=== PATIENT | male | born 1960 | race Two or more races ===

== ENCOUNTER 2019-07-06 14:11 | Emergency (ER) | payer MEDICAID, OTHER ==
[~2019-07-06] VITALS: Ht 165.1 cm; Wt 78.0 kg
[2019-07-06] MEDS ORDERED: SODIUM CHLORIDE 0.9% 1,000 ML IVB ONE (15:43)
[2019-07-06] MEDS ORDERED: PANTOPRAZOLE 40 MG/10 ML VIAL INJ IV STA (15:43)
[2019-07-06] MEDS ORDERED: ONDANSETRON HCL 4 MG/2 ML VIAL IV ONE (15:45)
[2019-07-06 15:46] LABS: Basophils # (auto) 0 uL; Basophils % (auto) 0.4 % (0.0-2.0); Eosinophils # (auto) 0.4 uL; Eosinophils % (auto) 6.1 % (0.0-7.0); Hematocrit 47.2 % (41.0-53.0); Hemoglobin 16.1 g/dL (13.5-17.5); Lymphocytes # (auto) 2.2 uL; Lymphocytes % (auto) 31.6 % (10.0-50.0); Mean Corpuscular Hemoglobin 30.6 pg (28.0-32.0); Mean Corpuscular Hgb Conc. 34.1 g/dL (32.0-36.0); Mean Corpuscular Volume 89.7 fL (80.0-100.0); Monocytes # (auto) 0.4 uL; Monocytes % (auto) 6.1 % (0.0-12.0); Neutrophils # (auto) 3.9 uL; Neutrophils % (auto) 55.8 % (37.0-80.0); Nucleated Red Blood Cells % 0.1 %; Platelet Count (auto) 164 10^3/uL (140-450); Red Blood Cells 5.26 10^6/uL (4.5-5.90); Red Cell Distribution Width 13.1 % (11.8-14.3)
[2019-07-06 16:12] LABS: Albumin 3.9 g/dL (3.4-5.0); Calcium 9.2 mg/dL (8.5-10.1); Potassium 4.3 mmol/L (3.5-5.1)
[2019-07-06 16:14] LABS: BUN/Creatinine Ratio 12.6
[2019-07-06 16:17] LABS: Bilirubin, Total 0.2 mg/dL (0.2-1.0); Total Protein 8.2 g/dL (6.4-8.2)
[2019-07-06 18:51] LABS: Urine Bacteria NONE SEEN /hpf (None Seen); Urine Blood Negative /uL (Negative); Urine Mucus FEW (None Seen); Urine Specific Gravity 1.024 (1.001-1.035); Urine WBC <1 /hpf (0 - 3)
[2019-07-06 19:36] VITALS: BP 129/88
== END 2019-07-06 19:47 | disposition home or self-care (01) ==
LOC: ER 14:11
DX: R10.13 Epigastric pain (principal); R11.2 Nausea with vomiting, unspecified; J45.909 Unspecified asthma, uncomplicated; E11.9 Type 2 diabetes mellitus without complications; I10 Essential (primary) hypertension
CPT/HCPCS: 36415; 76705; 80053; 81001; 82962; 83690; 85025; 96361; 96374; 96375; 99284; C9113; J2405; J7030

== ENCOUNTER 2019-09-11 02:39 | Inpatient (IN) | payer SELFPAY ==
[~2019-09-11] VITALS: Ht 165.1 cm; Wt 76.7 kg
[2019-09-11 03:06] LABS: Basophils # (auto) 0 10 ^3/uL (0-0.2); Basophils % (auto) 0.5 % (0.0-2.0); Eosinophils # (auto) 0.3 10 ^3/uL (0-0.8); Eosinophils % (auto) 4.4 % (0.0-7.0); Hemoglobin 15.6 g/dL (13.5-17.5); Lymphocytes # (auto) 2.4 10 ^3/uL (0.4-5.4); Lymphocytes % (auto) 35.6 % (10.0-50.0); Mean Corpuscular Hgb Conc. 33.9 g/dL (32.0-36.0); Mean Corpuscular Volume 88.4 fL (80.0-100.0); Monocytes # (auto) 0.5 10 ^3/uL (0-1.3); Monocytes % (auto) 7.5 % (0.0-12.0); Neutrophils # (auto) 3.5 10 ^3/uL (1.6-8.6); Nucleated Red Blood Cells % 0.1 %; Platelet Count (auto) 171 10^3/uL (140-450); Red Cell Distribution Width 13.2 % (11.8-14.3); White Blood Cell 6.8 10^3/uL (4.4-10.8)
[2019-09-11 03:23] LABS: INR 1.04 (0.9-1.15); Partial Thromboplastin Time 28.5 sec (23.64-32.05)
[2019-09-11 03:24] LABS: Albumin 3.6 g/dL (3.4-5.0); BUN/Creatinine Ratio 15.6; Calcium 8.7 mg/dL (8.5-10.1); Potassium 3.8 mmol/L (3.5-5.1)
[2019-09-11 03:28] LABS: Bilirubin, Total 0.5 mg/dL (0.2-1.0); Total Protein 7.7 g/dL (6.4-8.2)
[2019-09-11] MEDS ORDERED: ENOXAPARIN SOD 80 MG/0.8ML SYRINGE SC ONE (04:00)
[2019-09-11 05:38] LABS: Urine Bacteria NONE SEEN /hpf (None Seen); Urine Blood Negative /uL (Negative); Urine Specific Gravity 1.006 (1.001-1.035); Urine WBC <1 /hpf (0 - 3)
[2019-09-11] MEDS ORDERED: SODIUM CHLORIDE 0.9% 1,000 ML IV SCH (06:54)
[2019-09-11] MEDS ORDERED: MORPHINE SULF INJ 2 MG/ML SYRINGE 1ML IV PRN (07:00)
[2019-09-11] MEDS ORDERED: ONDANSETRON HCL 4 MG/2 ML VIAL IV PRN (07:00)
[2019-09-11] MEDS ORDERED: NITROGLYCERIN 0.4 MG SL TAB SL PRN (07:00)
[2019-09-11] MEDS ORDERED: TEMAZEPAM 15 MG CAP PO PRN (07:00)
[2019-09-11] MEDS ORDERED: DEXTROSE (50%) 50ML SYRG IV PRN (07:00)
[2019-09-11] MEDS ORDERED: ATORVASTATIN 20 MG TAB PO ONE (07:00)
[2019-09-11 07:59] LABS: Cholesterol 245 mg/dL (< 200); HDL Cholesterol 47 mg/dL (40-59); LDL Cholesterol 152 mg/dL (< 100); Triglycerides 279 mg/dL (< 150)
[2019-09-11 09:30] VITALS: BP 135/89
[2019-09-11] MEDS ORDERED: LISINOPRIL 5 MG TAB PO SCH (10:00)
[2019-09-11 10:03] VITALS: BP 135/89
[2019-09-11] MEDS: ASPirin 81 mg TAB PO SCH (10:05)
[2019-09-11] MEDS: METOPROLOL TARTRATE 25 MG TAB PO SCH ×2 (10:06→22:09)
[2019-09-11] MEDS: FAMOTIDINE 20 MG TAB PO SCH ×2 (10:06→22:10)
[2019-09-11] MEDS ORDERED: ADENOSINE 65 MG in GIVE UN-DILUTED 0 ML IV STA (10:11)
[2019-09-11] MEDS ORDERED: GLIP5TAB12 PO (10:27)
[2019-09-11] MEDS ORDERED: LISI-646 PO (10:27)
[2019-09-11] MEDS ORDERED: METF-371 PO (10:27)
[2019-09-11] MEDS: InsuLIN REG 1unit/0.01ml Soln (100units/ml) SC SCH ×3 (11:39→23:50)
[2019-09-11] MEDS: ACCU-CHEK COMFORT CURVE STRIP VI SCH ×3 (11:39→23:46)
[2019-09-11 12:58] VITALS: BP 142/92
[2019-09-11 14:22] VITALS: BP 142/99
[2019-09-11] MEDS ORDERED: CLOPIDOGREL 300 MG TAB PO ONE (16:00)
[2019-09-11] MEDS ORDERED: ASPirin 81 mg TAB PO ONE (16:00)
[2019-09-11] MEDS ORDERED: ALBUAER3 IN (16:14)
[2019-09-11] MEDS ORDERED: HEPARIN SODIUM (PORCINE) 5000 UNITS/ML 1ML VIAL IV ONE (16:30)
[2019-09-11 16:34] VITALS: BP 152/92
[2019-09-11] MEDS ORDERED: HEPARIN DRIP/D5W 100UNITS/ML 250 ML IV SCH (16:45)
[2019-09-11 17:36] LABS: INR 1.08 (0.9-1.15); Partial Thromboplastin Time 30.4 sec (23.64-32.05)
[2019-09-11 22:00] VITALS: BP 140/77
[2019-09-11] MEDS ORDERED: ATORVASTATIN 20 MG TAB PO SCH (22:00)
[2019-09-11 22:09] LABS: INR 1.12 (0.9-1.15); Partial Thromboplastin Time 52.7 sec (23.64-32.05)
[2019-09-11] MEDS: ATORVASTATIN 20 MG TAB PO SCH (22:09)
[2019-09-12 00:01] LABS: INR 1.09 (0.9-1.15); Partial Thromboplastin Time 47.5 sec (23.64-32.05)
[2019-09-12] MEDS: SODIUM CHLORIDE 0.9% 1,000 ML IV SCH ×2 (00:07→13:21)
[2019-09-12 05:00] VITALS: BP_SYST 105; BP_SYST 127; BP_DIAS 67; BP_DIAS 86
[2019-09-12] MEDS: ACCU-CHEK COMFORT CURVE STRIP VI SCH ×4 (05:49→23:58)
[2019-09-12] MEDS: InsuLIN REG 1unit/0.01ml Soln (100units/ml) SC SCH ×3 (05:50→18:01)
[2019-09-12 06:57] LABS: Basophils # (auto) 0 10 ^3/uL (0-0.2); Basophils % (auto) 0.4 % (0.0-2.0); Eosinophils # (auto) 0.3 10 ^3/uL (0-0.8); Eosinophils % (auto) 4.8 % (0.0-7.0); Hematocrit 42.1 % (41.0-53.0); Hemoglobin 14.4 g/dL (13.5-17.5); Lymphocytes # (auto) 2.3 10 ^3/uL (0.4-5.4); Lymphocytes % (auto) 42.6 % (10.0-50.0); Mean Corpuscular Hemoglobin 30.2 pg (28.0-32.0); Mean Corpuscular Hgb Conc. 34.3 g/dL (32.0-36.0); Mean Corpuscular Volume 88.1 fL (80.0-100.0); Monocytes # (auto) 0.4 10 ^3/uL (0-1.3); Monocytes % (auto) 7.5 % (0.0-12.0); Neutrophils # (auto) 2.4 10 ^3/uL (1.6-8.6); Neutrophils % (auto) 44.7 % (37.0-80.0); Nucleated Red Blood Cells % 0.1 %; Platelet Count (auto) 153 10^3/uL (140-450); Red Blood Cells 4.78 10^6/uL (4.5-5.90); Red Cell Distribution Width 13.3 % (11.8-14.3); White Blood Cell 5.4 10^3/uL (4.4-10.8)
[2019-09-12 07:11] LABS: INR 1.11 (0.9-1.15); Partial Thromboplastin Time 59.1 sec (23.64-32.05)
[2019-09-12 07:13] LABS: Calcium 8.4 mg/dL (8.5-10.1); Potassium 3.7 mmol/L (3.5-5.1)
[2019-09-12 07:18] LABS: BUN/Creatinine Ratio 12.8
[2019-09-12 08:00] VITALS: BP 129/78
[2019-09-12 08:56] VITALS: BP 129/78
[2019-09-12] MEDS: ASPirin 81 mg TAB PO SCH (09:56)
[2019-09-12] MEDS: FAMOTIDINE 20 MG TAB PO SCH ×2 (09:56→21:57)
[2019-09-12] MEDS: LISINOPRIL 20 MG TAB PO SCH (09:57)
[2019-09-12] MEDS: METOPROLOL TARTRATE 25 MG TAB PO SCH ×2 (09:57→21:58)
[2019-09-12] MEDS ORDERED: fentaNYL CITRATE 100 MCG/2 ML VL ONE (12:01)
[2019-09-12] MEDS ORDERED: LIDOCAINE 2%HCL (LOCAL ANESTH.) INJ 20ML MDV ONE (12:01)
[2019-09-12] MEDS ORDERED: IOHEXOL 350 MG/ML 100ML IJ ONE ×3 (12:01→13:02)
[2019-09-12] MEDS ORDERED: MIDAZOLAM HCL 1MG/1ML-2 ML VIAL ONE (12:01)
[2019-09-12] MEDS ORDERED: VERAPAMIL 2.5MG/ML INJ 2ML VIAL IV ONE (12:05)
[2019-09-12] MEDS ORDERED: ATROPINE SULF 1 MG/10ml SYR ONE (12:24)
[2019-09-12] MEDS ORDERED: HEPARIN SODIUM (PORCINE) 5000 UNITS/ML 1ML VIAL ONE (12:46)
[2019-09-12] MEDS ORDERED: diphenhdrAMINE HCL 50 MG/1 ML VL ONE (12:53)
[2019-09-12] MEDS ORDERED: CLOPIDOGREL 300 MG TAB ONE ×2 (13:23→13:26)
[2019-09-12 15:54] LABS: INR 1.07 (0.9-1.15); Partial Thromboplastin Time 36.3 sec (23.64-32.05)
[2019-09-12] MEDS ORDERED: amLODIPine BESYLATE 5 MG TAB PO ONE (16:00)
[2019-09-12 16:52] VITALS: BP 152/87
[2019-09-12] MEDS: ATORVASTATIN 20 MG TAB PO SCH (21:57)
[2019-09-12 22:00] VITALS: BP 143/79
[2019-09-13] MEDS: SODIUM CHLORIDE 0.9% 1,000 ML IV SCH ×2 (02:40→16:12)
[2019-09-13 05:00] VITALS: BP 105/71
[2019-09-13] MEDS: ACCU-CHEK COMFORT CURVE STRIP VI SCH ×3 (05:48→18:11)
[2019-09-13] MEDS: InsuLIN REG 1unit/0.01ml Soln (100units/ml) SC SCH ×4 (05:50→18:13)
[2019-09-13 08:55] VITALS: BP 117/65
[2019-09-13] MEDS: ASPirin 81 mg TAB PO SCH (11:42)
[2019-09-13] MEDS: METOPROLOL TARTRATE 25 MG TAB PO SCH ×2 (11:42→22:03)
[2019-09-13] MEDS: FAMOTIDINE 20 MG TAB PO SCH ×2 (11:42→22:01)
[2019-09-13] MEDS: CLOPIDOGREL BISULFATE 75 MG TAB PO SCH (11:43)
[2019-09-13] MEDS: LISINOPRIL 20 MG TAB PO SCH (11:43)
[2019-09-13] MEDS: amLODIPine BESYLATE 5 MG TAB PO SCH (11:44)
[2019-09-13 13:00] VITALS: BP 139/83
[2019-09-13 16:37] VITALS: BP 131/86
[2019-09-13 21:53] VITALS: BP 132/87
[2019-09-13] MEDS: ATORVASTATIN 20 MG TAB PO SCH (22:01)
[2019-09-14 05:00] VITALS: BP 132/83
[2019-09-14] MEDS: SODIUM CHLORIDE 0.9% 1,000 ML IV SCH ×2 (05:21→18:16)
[2019-09-14] MEDS: InsuLIN REG 1unit/0.01ml Soln (100units/ml) SC SCH ×4 (06:00→17:48)
[2019-09-14 06:34] LABS: Basophils # (auto) 0 10 ^3/uL (0-0.2); Basophils % (auto) 0.4 % (0.0-2.0); Eosinophils # (auto) 0.3 10 ^3/uL (0-0.8); Eosinophils % (auto) 3.6 % (0.0-7.0); Hematocrit 42.5 % (41.0-53.0); Hemoglobin 14.8 g/dL (13.5-17.5); Lymphocytes # (auto) 2.2 10 ^3/uL (0.4-5.4); Lymphocytes % (auto) 30.6 % (10.0-50.0); Mean Corpuscular Hemoglobin 30.6 pg (28.0-32.0); Mean Corpuscular Hgb Conc. 34.7 g/dL (32.0-36.0); Mean Corpuscular Volume 88.1 fL (80.0-100.0); Monocytes # (auto) 0.7 10 ^3/uL (0-1.3); Monocytes % (auto) 8.9 % (0.0-12.0); Neutrophils # (auto) 4.1 10 ^3/uL (1.6-8.6); Neutrophils % (auto) 56.5 % (37.0-80.0); Nucleated Red Blood Cells % 0.2 %; Platelet Count (auto) 149 10^3/uL (140-450); Red Blood Cells 4.82 10^6/uL (4.5-5.90); Red Cell Distribution Width 13.4 % (11.8-14.3); White Blood Cell 7.3 10^3/uL (4.4-10.8)
[2019-09-14] MEDS: ACCU-CHEK COMFORT CURVE STRIP VI SCH ×4 (06:48→17:44)
[2019-09-14 06:49] LABS: Calcium 8.4 mg/dL (8.5-10.1); INR 1.07 (0.9-1.15); Potassium 3.5 mmol/L (3.5-5.1)
[2019-09-14 07:30] VITALS: BP 145/81
[2019-09-14 09:00] VITALS: BP 132/77
[2019-09-14] MEDS ORDERED: IOHEXOL 350 MG/ML 100ML IJ ONE (09:12)
[2019-09-14] MEDS ORDERED: LIDOCAINE 2%HCL (LOCAL ANESTH.) INJ 20ML MDV ONE (09:12)
[2019-09-14] MEDS ORDERED: ANGIOMAX 250 MG VIAL IV ONE (10:06)
[2019-09-14] MEDS ORDERED: MIDAZOLAM HCL 1MG/1ML-2 ML VIAL ONE (10:06)
[2019-09-14] MEDS ORDERED: fentaNYL CITRATE 100 MCG/2 ML VL ONE (10:06)
[2019-09-14] MEDS ORDERED: VERAPAMIL 2.5MG/ML INJ 2ML VIAL IV ONE (10:06)
[2019-09-14] MEDS ORDERED: SODIUM CHL 0.9% 50 ML ONE (10:06)
[2019-09-14] MEDS ORDERED: HEPARIN SODIUM (PORCINE) 5000 UNITS/ML 1ML VIAL ONE (10:06)
[2019-09-14] MEDS: CLOPIDOGREL BISULFATE 75 MG TAB PO SCH (11:08)
[2019-09-14] MEDS: ASPirin 81 mg TAB PO SCH (11:08)
[2019-09-14] MEDS: amLODIPine BESYLATE 5 MG TAB PO SCH (12:59)
[2019-09-14] MEDS: FAMOTIDINE 20 MG TAB PO SCH ×2 (12:59→21:22)
[2019-09-14] MEDS: METOPROLOL TARTRATE 25 MG TAB PO SCH ×2 (12:59→21:21)
[2019-09-14] MEDS: LISINOPRIL 20 MG TAB PO SCH (13:00)
[2019-09-14 17:04] VITALS: BP 121/83
[2019-09-14 21:18] VITALS: BP 139/81
[2019-09-14] MEDS: ATORVASTATIN 20 MG TAB PO SCH (21:20)
[2019-09-15] MEDS: InsuLIN REG 1unit/0.01ml Soln (100units/ml) SC SCH ×3 (00:21→12:00)
[2019-09-15] MEDS: ACCU-CHEK COMFORT CURVE STRIP VI SCH ×3 (00:22→12:00)
[2019-09-15 05:01] VITALS: BP 121/75
[2019-09-15 07:30] VITALS: BP 145/81
[2019-09-15] MEDS: SODIUM CHLORIDE 0.9% 1,000 ML IV SCH (08:01)
[2019-09-15 09:00] VITALS: BP 116/81
[2019-09-15] MEDS ORDERED: LIDOCAINE 2% (LOCAL ANESTH.) PF 5ml SDV ONE ×2 (10:34→10:55)
[2019-09-15] MEDS ORDERED: PROPOFOL 10 MG/ML 20 ML IV ONE ×2 (10:34→10:56)
[2019-09-15] MEDS: ASPirin 81 mg TAB PO SCH (10:50)
[2019-09-15] MEDS: CLOPIDOGREL BISULFATE 75 MG TAB PO SCH (10:51)
[2019-09-15] MEDS: METOPROLOL TARTRATE 25 MG TAB PO SCH (10:51)
[2019-09-15] MEDS: FAMOTIDINE 20 MG TAB PO SCH (10:51)
[2019-09-15] MEDS: amLODIPine BESYLATE 5 MG TAB PO SCH (10:51)
[2019-09-15] MEDS: LISINOPRIL 20 MG TAB PO SCH (10:52)
[2019-09-15 13:00] VITALS: BP 121/90
[2019-09-15 13:14] VITALS: BP 121/93
== END 2019-09-15 16:05 | disposition home or self-care (01) | DRG 174 ==
LOC: ER 02:41 → TELE 02:42 → TELE-CENTR 09:15
PROVIDERS: ADMIT Nurse Practitioner; ATTEND Internal Medicine Nephrology
PROC: 4A023N7 Measurement of Cardiac Sampling and Pressure, Left Heart, Percutaneous Approach (ICD-10-PCS; principal; 2019-09-12)
PROC: 027034Z Dilation of Coronary Artery, One Artery with Drug-eluting Intraluminal Device, Percutaneous Approach (ICD-10-PCS; 2019-09-12)
PROC: B2111ZZ Fluoroscopy of Multiple Coronary Arteries using Low Osmolar Contrast (ICD-10-PCS; 2019-09-12)
PROC: B2151ZZ Fluoroscopy of Left Heart using Low Osmolar Contrast (ICD-10-PCS; 2019-09-12)
PROC: 02713ZZ Dilation of Coronary Artery, Two Arteries, Percutaneous Approach (ICD-10-PCS; 2019-09-14)
DX: I21.4 Non-ST elevation (NSTEMI) myocardial infarction (principal); E11.9 Type 2 diabetes mellitus without complications; E78.00 Pure hypercholesterolemia, unspecified; E78.5 Hyperlipidemia, unspecified; I10 Essential (primary) hypertension; I25.10 Atherosclerotic heart disease of native coronary artery without angina pectoris; J45.909 Unspecified asthma, uncomplicated; Z79.84 Long term (current) use of oral hypoglycemic drugs; Z83.3 Family history of diabetes mellitus; Z79.899 Other long term (current) drug therapy
CPT/HCPCS: 36415; 71046; 78452; 80048; 80053; 80061; 81001; 82565; 82962; 83036; 83735; 83880; 84443; 84484; 85025; 85379; 85610; 85730; 92920; 92928; 93005; 93017; 93306; 93458; 99152; 99153; C1874; C1887; G0378; J0153; J1815; J2001; J2250; J2704

== ENCOUNTER 2021-06-08 21:30 | Emergency (ER) | payer MEDICAID ==
[~2021-06-08] VITALS: Ht 165.1 cm; Wt 68.9 kg
[~2021-06-08 21:30] MED LIST: ALBUAER3 IN; GLIP5TAB12 PO; LISI20TA28 PO; METF-371 PO
[2021-06-08] MEDS ORDERED: ALBUTEROL SULF 2.5 MG/0.5ML(0.5%) NEB SOLN NEB STA (21:47)
[2021-06-08] MEDS ORDERED: IPRATROPIUM BROM 0.5 MG/2.5ML INH SOL NEB ONE (22:00)
[2021-06-08 23:43] LABS: Basophils # (auto) 0.1 10 ^3/uL (0-0.2); Basophils % (auto) 0.4 % (0.0-2.0); Eosinophils # (auto) 0.1 10 ^3/uL (0-0.8); Eosinophils % (auto) 0.6 % (0.0-7.0); Hematocrit 43.1 % (41.0-53.0); Hemoglobin 14.5 g/dL (13.5-17.5); Lymphocytes % (auto) 15.9 % (10.0-50.0); Mean Corpuscular Hgb Conc. 33.6 g/dL (32.0-36.0); Monocytes # (auto) 0.8 10 ^3/uL (0-1.3); Monocytes % (auto) 6.1 % (0.0-12.0); Neutrophils # (auto) 9.7 10 ^3/uL (1.6-8.6); Red Blood Cells 4.85 10^6/uL (4.5-5.90); Red Cell Distribution Width 12.7 % (11.8-14.3); White Blood Cell 12.6 10^3/uL (4.4-10.8)
[2021-06-08 23:53] LABS: Albumin 2.8 g/dL (3.4-5.0); Calcium 8.5 mg/dL (8.5-10.1); Potassium 4.4 mmol/L (3.5-5.1)
[2021-06-09] LABS: BUN/Creatinine Ratio 21.4; Bilirubin, Total 0.2 mg/dL (0.2-1.0); Total Protein 8.3 g/dL (6.4-8.2)
[2021-06-09 00:39] LABS: Lactic Acid w/Reflex 3.4 mmol/L (0.4-2.0)
[2021-06-09] MEDS ORDERED: ALBUTEROL SULF 2.5 MG/0.5ML(0.5%) NEB SOLN NEB ONE (01:15)
[2021-06-09] MEDS ORDERED: IPRATROPIUM BROM 0.5 MG/2.5ML INH SOL NEB ONE (01:15)
[2021-06-09] MEDS ORDERED: methylPREDNISolone SOD SUCC 125 MG/2 ML VL IV ONE (01:15)
[2021-06-09] MEDS ORDERED: AZITHROMYCIN 500MG/ 250ML 250 ML IV ONE (02:30)
[2021-06-09] MEDS ORDERED: cefTRIAXone 1GM/50ML D5W 50 ML IV ONE (02:30)
[2021-06-09] MEDS ORDERED: SPACMIS XX (05:49)
[2021-06-09] MEDS ORDERED: ALBU108A5 IN (05:49)
[2021-06-09 06:02] VITALS: BP 121/79
== END 2021-06-09 06:57 | disposition home or self-care (01) ==
LOC: ER 21:31
DX: J18.9 Pneumonia, unspecified organism (principal); J45.909 Unspecified asthma, uncomplicated; E11.9 Type 2 diabetes mellitus without complications; E78.5 Hyperlipidemia, unspecified; I10 Essential (primary) hypertension; Z20.822 Contact with and (suspected) exposure to COVID-19
CPT/HCPCS: 36415; 71045; 80053; 83605; 83880; 84484; 85025; 87040; 87077; 87186; 87426; 93005; 94640; 96365; 96367; 96375; 99285; J0456; J0696; J2930; J7644